=== PATIENT | male | born 1955 | race Caucasian/White ===

== ENCOUNTER 2025-04-04 05:51 | Emergency (ER) | payer MEDICARE, SELFPAY ==
--- OUTSIDE RECORDS SUMMARY | 2025-04-04 05:54 | XMS_ITS | Data Portability ---
Author Organization [facility], [facility] Address [address] [place] [address] Assessment Encounter Date Assessment Date Assessment LastModified by Organization Details LastModified Time 05/05/2023 05/05/2023 67 year old male with phimosis and penile discharge Not available 05/04/2023 22:55:54 06/21/2023 06/21/2023 67 year old male with phimosis and penile discharge rstromquist Not available 06/18/2023 16:39:37 Plan of Treatment Reminders Order Date Submit Date Provider Last Modified By Organization Details Last Modified Time Details Appointments None recorded. Lab None recorded. Referral None recorded. Procedures None recorded. Surgeries circumcisio n (SURG) 2022 023 Not available 14:29:27 Imaging None recorded. Medication Orders None recorded. Patient TargetsNo targets recorded. Patient InstructionsNo instructions recorded. Reason for Referral None Reported. Procedures Surgical History Date Name Laterality Status Provider Name and Address Organization Details Recorded Time 05/21/19 24 CIRCUMCISION (SURG) completed Mir King MD [address] [place] [address],[address] [place] [address], [phone], [facility] 06/21/2023 16:44:42 05/17/19 17 Colonoscopy completed Mir King MD [address] [place] [address],[address], [place], [address], [facility] 05/05/2023 14:38:20 Imaging Results None recorded. Procedure Notes None recorded. Medical Equipment None Reported. Allergies No known drug allergies Medications Name Sig Start Date Stop Date Status Note LastModified by Organization Details LastModified Time valacyclovi r 1 gram tablet TAKE 1 TABLET BY MOUTH THREE TIMES DAILY FOR 10 DAYS 06/21 completed Not Available Not Available Not Available naproxen 250 mg tablet active Not Available Not Available Not Available prednisone 10 mg tablets in a dose pack FOLLOW PACKAGE DIRECTION S 05/05 completed Not Available Not Available Not Available triamcinolo ne acetonide 0.1 % topical ointment APPLY TOPICALLY TO THE AFFECTED AREA TWICE DAILY 05/05 completed Not Available Not Available Not Available clotrimazol e-betametha sone 1 %-0.05 % topical cream APPLY TOPICALLY TO THE AFFECTED AREA TWICE DAILY FOR 14 DAYS 05/05 completed Not Available Not Available Not Available gabapentin 100 mg capsule TAKE 1 CAPSULE BY MOUTH EVERY DAY AT BEDTIME 05/05 completed Not Available Not Available Not Available Vitals Date Recorded Body height Body mass index (BMI) Body weight Provider Name and Address Organization Details Last Updated DateTime 06/21/2023 177.8 cm 28.7 kg/m2 56819.47 g Shelly Mccurdy [facility] 06/21/2023 15:39:32 Date Recorded Body height Body mass index (BMI) Body weight Provider Name and Address Organization Details Last Updated DateTime 05/05/2023 177.8 cm 28.7 kg/m2 19423.47 g Mir King MD [address] [place] [address],[place] [phone] [place] [address] Urology 05/05/2023 14:36:52 Social History Question Answer Notes LastModified by [employer] Details LastModified Time Tobacco Smoking Status Former Smoker Mir King MD [address] [place] [address],[place] [phone] [place] [address] Urology 05/05/2023 14:37:58 When Did You Quit Smoking? 16+yearssinc elastcigaret te Information not available 05/05/2023 What Was The Date Of Your Most Recent Tobacco Screening? 06/21/2023 [email or web address] Information not available 06/21/2023 Has Tobacco Cessation Counseling Been Provided? No Information not available 05/05/2023 Sex: Unknown Functional Status Question Answer Note LastModified by Organizat ion Details LastModified Time Do you or have you ever used any other forms of tobacco or nicotine? No Information not available 05/05/2023 What is your level of alcohol consumption? Occasional Information not available 05/05/2023 Mental Status None recorded. Family History Relationship Description Onset Age of this Age Resolved Age Notes LastModified by Organization Details LastModified Time Father No current problems or disability [email or web address] Not available 06/21 15:39:56 Mother No current problems or disability [email or web address] Not available 06/21 15:39:56 Medical History Condition Response Diabetes N Sexually Transmitted Infection N Other N Bleeding Disorder N High Blood Pressure N Kidney Stones N Cancer N Lung Disease N Depression N High Cholesterol N GERD/Acid Reflux N Heart Disease N Immunizations Vaccine Type Date Status Note Provider Joseph black and Address Organization Details Recorded Time Tdap 01/02/2009 completed Mir King MD [address] [place] [address], [phone], [facility] [place] [facility] 05/05/2023 14:37:02 Past Encounters Encounter ID Performer Location Encounter Start Date Encounter Closed Date Diagnosis/Indication Diagnosis SNOMED-CT Code Diagnosis ICD10 Code Diagnosis IMO Codes Diagnosis Note [id number] MD SERGIO Ansari_Bernadette [address] [place] [address] 05/05/2023 14:14:16 05/18/2023 11:27:05 Phimosis 056224658 N47.1 - We discussed the natural history of phimosis and various treatment options including topical steroid cream (though high risk of recurrence ), Novoglan, and the more definitive dorsal slit/circu mcision. We discussed the risks and benefits of each potential course of action. The patent's questions were answered to the best of my ability and to his satisfacti on. AT this point he would like to proceed with circumcisi on Discharge from penis 291 0007 R36.9 - As above Pain in penis 509989156 N48.89 - As above [id number] MD SERGIO Ansari_Bernadette [address] [place] [id number] 06/21/2023 15:32:31 06/21/2023 16:46:46 Phimosis 579718516 N47.1 - Status post circumcisi on healing well.-Okay to follow-up as needed Discharge from penis 291 0007 R36.9 - As above Pain in penis 273875748 N48.89 - As above Health Concerns Section Related Observation LastModified by Organization Detai ls LastModified Time None Recorded Concern Status LastModified by Organization Details LastModified Time None Recorded Advance Directives Directive None Recorded Payers Insurance Date Sequence Insurance Name Policy Number Policy Leal Covered Member ID Leal Member ID Guarantor Name 06/07/2023 1 [place] Adly Alistair Cifuentes [id number] Alistair Cifuentes 06/18/2023 1 UCARE - DOS ON OR AFTER 19 (MEDICARE REPLACEMENT/A DVANTAGE - HMO) [id number] 10 Alistair Cifuentes [id number] Alistair Cifuentes 06/14/2023 1 UCARE - DOS PRIOR TO 2022 - DUAL ELIGIBLE (MEDICARE REPLACEMENT/A DVANTAGE - HMO) [id number] 10 Alistair Cifuentes [id number] Alistair Cifuentes 05/29/2023 1 [place] Adly Alistair Cifuentes [id number] Alistair Cifuentes Notes Date Note Type Note Provider Name and Address Organization Details Recorded Time 05/05/2023 text/html Mr. Cifuentes is a very pleasant 67 yoM who is referred to me by his PCP, Dr. Vora, regarding chronic phimosis and penile discharge. Patient has been dealing with this for nearly 6-7 years now but worsening. Reports significant pain with urination. Mir King MD [address] [place] [address],[address], [place], [address], [facility] [place] [facility] 05/05/2023 22:09:27 06/21/2023 text/html Mr. Cifuentes is a very pleasant 67 yoM who is referred to me by his PCP, Dr. Vora, regarding chronic phimosis and penile discharge. Patient has been dealing with this for nearly 6-7 years now but worsening. Reports significant pain with urination. 06/21/2023:Here for postop follow-up status post circumcision. Healing well. Mir King MD [address], [place], [address], [facility] 06/21/2023 16:45:28
--- OUTSIDE RECORDS SUMMARY | 2025-04-04 05:54 | XMS_ITS | Clinical Summary ---
Author Organization [facility] Address [address] [place] [address] Care Team Providers Care Web Assistant Name Role Phone Matt Pompa MD Primary Care Provider [phone] Allergies No known active allergies Medications aspirin 81 mg enteric coated tabletIndications:Exert ional chest pain Take 1 Tablet (81 mg) by mouth once daily with a meal. 100 Tablet 10/05/19 25 Active rosuvastatin 20 mg tabletIndications:Pure hypercholesterolemia Take 1 Tablet (20 mg) by mouth at bedtime. 90 Tablet 3 10/06/19 25 Active nitroglycerin 0.4 mg sublingual tabletIndications:Exert ional chest pain Place 1 Tablet (0.4 mg) under the tongue every 5 minutes if needed for Chest Pain. Up to 3 tablets in 15 minutes. If patient requesting greater than 25 doses in 30 days, to provider to authorize 25 Tablet 4 12/12/19 25 Active Active Problems Problem Noted Date Diagnosed Date Other atopic dermatitis and related conditions 0 07/11/2007 Unspecified essential hypertension 07/11/2007 Pure hypercholesterolemia 07/11/2007 Immunizations Immunization Administration Dates Next Due Td (Age >=7 Years) 11/19/1995 Tdap 01/02/2009 Family History Medical History Relation Name Comments other Brother 1 Nic he was in a bad car accident when he was young; from another car accident at 74. Other Brother 2 in a work accident Unknown Father Natural causes 89 Heart failure Half-Brother open heart tracee bonnie of heart giving out at 82, Diabetes Mother age 66 Stroke Mother of a strok e after hip fracture at 84 Relation Name Status Comments Brother 1 Nic Brother 2 Father Half-Brother Alive Half-Sister Alive Mother Sister Alive Social History Tobacco Use Types Packs/Day Years Used Date Smoking Tobacco: Former Cigarettes 0.8 25 0 07/12/1973 - 07/12/1998 Smokeless Tobacco: Never Tobacco Cessation:Counseling Given: Yes Alcohol Use Standard Drinks/Week Comments Not Currently 0 (1 standard drink = 0.6 oz pur e alcohol) quit in 2022 PHQ-2 Answer Date Recorded PHQ-2 TOTAL SCORE 0 09/27/2024 Social Connections Answer Date Recorded Do you often feel lonely or isolated from those around you? 0 09/27/2024 Financial Resource Strain Answer Date R ecorded Difficulty of Paying Living Expenses 3 09/27/2024 Difficulty of Paying Living Expenses Not on file 09/27/2024 Food Insecurity Answer Date Recorded Do you worry your food will run out before you are able to buy more? 1 09/27/2024 Transportation Needs Answer Date Record ed Does lack of transportation keep you from medica l appointments? 1 09/27/2024 Does lack of transportation keep you from work, meetings or getting things that you need? 1 09/27/2024 Housing Stability Answer Date Recorded What is your housing situation today? 1 09/27/2024 Utilities Answer Date Recorded Do you have trouble paying f or utilities (for example, heat, electricity, water, phone)? 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 Not on file Not on file Not on file Retired Not on file Not on file Not on file Obstetrics History Last Filed Vital Signs Vital Sign Reading Time Taken Comments Blood Pressure 136/89 10/04/2024 9:30 AM CDT Pulse 75 10/04/2024 9:30 AM CDT Temperature 36.3 C (97.3 F) 05/21/2023 8:48 AM PRESSURE VESSEL INSPECTOR Respiratory Rate 16 05/21/2023 8:48 AM PRESSURE VESSEL INSPECTOR Oxygen Saturation 97% 10/04/2024 9:30 AM CDT Inhaled Oxygen Concentration - - Weight 91.9 kg (202 lb 8 oz) 09/27/2024 9:01 AM CDT Height 177.8 cm (5' 10) 09/27/2024 9:01 AM CDT Body Mass Index 29.06 09/27/2024 9:01 AM CDT Plan of Treatment Health Maintenance Due Date Last Done Comments Hepatitis C screening for age 18-79 07/14/1973 Pneumococcal series for age 50+ (1 of 1 - PCV) 07/14/2005 Zoster (shingles) series for age 50+ (1 of 2) 07/14/2005 Tetanus booster 01/02/2019 01/02/2009, 11/19/1995 AAA screening age 65-74 07/14/2020 Influenza Vaccine (#1) 2025 BMI (ht and wt on same day) for age 18+ 09/27/2025 09/27/2024, 08/13/2023, 12/27/2017 Depression screening for age 12+ 09/27/2025 09/27/2024, 08/13/2023, 12/27/2017 Medicare Wellness for age 65+ 09/28/2025 09/27/2024, 08/13/2023 Fecal testing sDNA-FIT (Cologuard) for age 45-75 08/24/2026 08/25/2023 Lipids for age 45-75 09/27/2029 09/27/2024, 07/14/2013, 01/18/2013, Additional history exists RSV vaccine for adults or (1 - 1-dose 75+ series) 07/14/2030 Hepatitis B series for 19+ Aged Out N o longer eligible based on patient's age to complete this topic Procedures Procedure Name Priority Date/Time Associated Diagnosis Comments LIPID PANEL W REFLEX MEASURED LDL Routine 09/27/2024 9:58 AM CDT Screening for cardiovascular condition SDNA-FIT EXTERNAL (COLOGUARD) Routine 08/25/2023 8:30 AM CDT Screening for colon cancer from Last 3 Months or Most Recently Relevant to Health Maintenance Results * (ABNORMAL) LIPID PANEL W REFLEX MEASURED LDL [[id number]] (09/27/2024 9:58 AM CDT) CHOLESTEROL, TOTAL 269(H) <200 mg/dL [facility] HDL CHOLESTEROL 48 > OR = 40 mg/dL [facility] TRIGLYCERIDES 149 <150 mg/dL [facility] LDL-CHOLESTEROL 190(H) mg/dL (calc) [facility] [place] Comment: LDL-C levels > or = 190 mg/dL may indicate familial hypercholesterolemia (FH). Clinical assessment and measurement of blood lipid levels should be considered for all first degree relatives of patients with an FH diagnosis. LDL Cholesterol (LDL-C) levels > or = 300 mg/dL may indicate homozygous familial hypercholesterolemia (HoFH). Untreated, these extremely high LDL-C levels can result in premature CV events and mortality. Patients should be identified early and provided appropriate interventions to reduce the cumulative LDL-C burden from . For questions about testing for familial hypercholesterolemia, please call [facility] at [email or web address].ViajaNet.INFO. Petra De Luna, et al. J National Lipid Association Recommendations for Patient-Centered Management of Dyslipidemia: Part 1 Journal of Clinical Lipidology 2015;9(2), 129-169. Karon Lainez et al. (2014). Homozygous familial hypercholesterolaemia: new insights and guidance for clinicians to improve detection and clinical management. Heart Journal, 35(32), 4518-4677. Reference range: <100 Desirable range <100 mg/dL for primary prevention; <70 mg/dL for patients with CHD or diabetic patients with > or = 2 CHD risk factors. LDL-C is now calculated using the Edgard-Dmitriy calculation, which is a validated novel method providing better accuracy than the Friedewald equation in the estimation of LDL-C. Edgard BRUCE et al. ARIS. 2013;310(19): 4922-3574 (http://education.Ctrax/faq/DNI299) CHOL/HDLC RATIO 5.6(H) <5.0 (calc) [facility] NON HDL CHOLESTEROL 221(H) <130 mg/dL (calc) [facility] Comment: Non-HDL level > or = 220 is very high and may indicate genetic familial hypercholesterolemia (FH). Clinical assessment and measurement of blood lipid levels should be considered for all first-degree relatives of patients with an FH diagnosis. For patients with diabetes plus 1 major ASCVD risk factor, treating to a non-HDL-C goal of <100 mg/dL (LDL-C of <70 mg/dL) is considered a therapeutic option. Blood BLOOD SPECIMEN / Unknown 09/27/2024 9:58 AM CDT 09/27/2024 10:00 AM CDT Narrative [facility] - 09/28/2024 4:03 AM CDT FASTING:YES FASTING: YES us Matt Pompa MD CHEMISTRY Final Resu lt [facility] [address] [place] [address], [facility] [address] [place] [address] * SDNA-FIT EXTERNAL (COLOGUARD) (08/25/2023 8:30 AM CDT) NONINV COLON CA DNA+OCC BLD SCRN STL-IMP Negative Negative 09/01/2023 1:05 PM CDT [facility]kola (CLIA #:[id number]) Comment: NEGATIVE TEST RESULT. A negative Cologuard result indicates a low likelihood that a colorectal cancer (CRC) or advanced adenoma (adenomatous polyps with more advanced pre-malignant features) is present. The chance that a person with a negative Cologuard test has a colorectal cancer is less than 1 in 1500 (negative predictive value >99.9%) or has an advanced adenoma is less than 5.3% (negative predictive value 94.7%). These data are based on a prospective cross-sectional study of 10,000 individuals at average risk for colorectal cancer who were screened with both Cologuard and colonoscopy. (Amber Pringle al, N Engl J Med 2014;370(14):2113-4508) The normal value (reference range) for this assay is negative. COLOGUARD RE-SCREENING RECOMMENDATION: Periodic colorectal cancer screening is an important part of preventive healthcare for asymptomatic individuals at average risk for colorectal cancer. Following a negative Cologuard result, the [place] Cancer Society and U.S. Multi-Society Task Force screening guidelines recommend a Cologuard re-screening interval of 3 years. References: [place] [employer] Society Guideline for Colorectal Cancer Screening: https://www.cancer.org/cancer/tohqi-ofjjhr-ubjzih/jqowqlopz-mqbqkmrfn-kbcnzmc/ac s-rec ommendations.html.; Warren DK, Johnnie RODRIGUEZ, Sumit EdwardsK, Colorectal Cancer Screening: Recommendations for Physicians and Patients from the U.S. Multi-Society Task Force on Colorectal Cancer Screening , Am J Gastroenterology 2017; 112:1809-5676. TEST DESCRIPTION: Composite algorithmic analysis of stool DNA-biomarkers with hemoglobin immunoassay. Quantitative values of individual biomarkers are not reportable and are not associated with individual biomarker result reference ranges. Cologuard is intended for colorectal cancer screening of adults of either sex, 45 years or older, who are at average-risk for colorectal cancer (CRC). Cologuard has been approved for use by the U.S. FDA. The performance of Cologuard was established in a cross sectional study of average-risk adults aged 50-84. Cologuard performance in patients ages 45 to 49 years was estimated by sub-group analysis of near-age groups. Colonoscopies performed for a positive result may find as the most clinically significant lesion: colorectal cancer [4.0%], advanced adenoma (including sessile serrated polyps greater than or equal to 1cm diameter) [20%] or non- advanced adenoma [31%]; or no colorectal neoplasia [45%]. These estimates are derived from a prospective cross-sectional screening study of 10,000 individuals at average risk for colorectal cancer who were screened with both Cologuard and colonoscopy. (Amber Simpson et al, N Engl J Med 2014;370(14):7110-5054.) Cologuard may produce a false negative or false positive result (no colorectal cancer or precancerous polyp present at colonoscopy follow up). A negative Cologuard test result does not guarantee the absence of CRC or advanced adenoma (pre-cancer). The current Cologuard screening interval is every 3 years. ([place] Cancer Society and U.S. Multi-Society Task Force). Cologuard performance data in a 10,000 patient pivotal study using colonoscopy as the reference method can be accessed at the following location: www.[employer].Counselytics/results. Additional description of the Cologuard test process, warnings and precautions can be found at www.SkinMedicard.com. Stool specimen (specimen) (Rectum) 08/25/2023 8:30 AM CDT 08/26/2023 1:00 PM CDT Matt Pompa MD URINE Final Resu lt [facility] (CLIA #:[id number]) [address] [place] [address], [place] [phone] from Last 3 Months or Most Recently Relevant to Health Maintenance Insurance [facility] MEDICARE ADVANTAGE [place] MEDICARE PART A HB ONLY Advance Directives * Full Code (Latest Code Status on File) Date Activated Date Inactivated Comments 05/21/2023 5:51 AM 05/21/2023 2:42 PM Question Answer Comments Code Status Discussion: Unable to Assess Preferences, Provider to review later Care Teams Web Assistant Relationship Specialty Start Date End Date Matt Pompa MD [address] [place] [address] PCP - General 11/19/05
[2025-04-04 05:58] VITALS: BP 155/106; PULSE 100; RESP 18; TEMP 36.1; O2SAT 98; BMI 27.3
--- NOTE | 2025-04-04 06:29 | ED.BACK ---
HPI - Back Pain/Injury General Time Seen by Provider: 06:30 Date Seen: 04/04/25 Chief Complaint: Back Injury/Pain Stated Complaint: back pain Time Seen by Provider: 04/04/25 06:29 Source: patient Mode of arrival: ambulatory History of Present Illness HPI Narrative: Alistair is a 69 yo male who has no significant past medical history who presents the emergency department for evaluation of low back pain. Patient reports that approximately 7 weeks ago he was moving rocks and since that time has been having some back pain. Patient states that he went to urgent care approximately 2 weeks ago and at that time patient was treated with a 5 day course of prednisone. Patient reports he completed the course of steroids with no improvement of symptoms and return to Urgent Care approximately 1 week ago. During this visit patient was given a referral to physical therapy and was recommended to continue Tylenol, ibuprofen, lidocaine patches and performed back exercises 1-2 times daily until he is able to get into physical therapy. Patient reports that no improvement of symptoms despite doing exercises, medications as directed. Patient reports worsening symptoms last night. Patient states he has been doing his back exercises and last night was going up the stairs when suddenly he felt a pop in his low back followed by severe pain. Patient reports pain across his entire low back. Denies any radiation of the pain down his legs, no focal weakness, no tingling, numbness, no urinary or bowel incontinence or retention. Patient last took ibuprofen around 5:00 p.m.. Patient frustrated with worsening symptoms as well as ongoing symptoms for the past 7 weeks with no answers, no imaging, and still with ongoing pain. Per chart review patient was seen at urgent care on 03/18/2025 at that time he was treated with prednisone 20 mg twice daily for 5 days. Patient was seen again on 03/27/2025 at that time when physical therapy referral was placed and recommended supportive care with back exercises, Tylenol, ibuprofen, lidocaine patch. Related Data Home Medications ?Medication ?Instructions ?Recorded ?Confirmed No Known Home Medications 03/27/25 03/27/25 Allergies Allergy/AdvReac Type Severity Reaction Status Date / Time No Known Drug Allergies Allergy Verified 04/04/25 06:03 Review of Systems Narrative: Past medical history, past surgical history, medications, allergies, family history, and social history were reviewed with the patient. No additional pertinent items. A medically appropriate review of systems was performed with pertinent positives and negatives noted in HPI, all other systems negative. [facility] Social History Smoking Status: Former smoker Exam Narrative: Exam Narrative: General: Afebrile, in distress secondary to pain HEENT: Normocephalic, atraumatic, conjunctiva normal. MMM Neck: non-tender, supple Cardio: regular rate. regular rhythm Resp: Normal work of breathing, no respiratory distress, lungs clear bilaterally, no wheezing, rhonchi, rales Chest/Back: no visual signs of trauma, no midline tenderness, no CVA tenderness, no step offs, no deformities, +patient reports tenderness across his entire low back (L4-L5) Abdomen: soft, non distension, no tenderness, no peritoneal signs Neuro: alert and fully oriented. CN II-XII intact. Normal strength and sensation in all extremities. MSK: no deformities. Normal range of motion Integumentary/Skin: no rash visualized, normal color Psych: normal affect, normal behavior Const: Vital Signs, click to edit/add: Vital Signs - 24 hr 04/04/25 05:58 Temperature 97.0 F L Pulse Rate [Right Pulse Oximeter] 100 Respiratory Rate 18 Blood Pressure [Ri ght Upper Arm] 155/106 H Pulse Oximetry 98 Oxygen Delivery Me thod Room Air Course Vital Signs Vital signs: Initial Vital Signs Temperature 97.0 F L 04/04/25 05:58 Temperature Source Temporal Artery Scan 04/04/25 05:58 Pulse Rate 100 04/04/25 05:58 Pulse Rhythm Regular 04/04/25 05:58 Pulse Strength 3+ Normal 04/04/25 05:58 Respiratory Rate 18 04/04/25 05:58 Blood Pressure 155/106 H 04/04/25 05:58 Blood Pressure Mean 122 H 04/04/25 05:58 Blood Pressure Position Sitting 04/04/25 05:58 Pulse Oximetry 98 04/04/25 05:58 Oxygen Delivery Method Room Air 04/04/25 05:58 Vital Signs Temperature 97.0 F L 04/04/25 05:58 Pulse Rate 100 04/04/25 05:58 Respiratory Rate 18 04/04/25 05:58 Blood Pressure 155/106 H 04/04/25 05:58 Pulse Oximetry 98 04/04/25 05:58 Oxygen Delivery Method Room Air 04/04/25 05:58 Temperature 97.0 F L 04/04/25 05:58 Pulse Rate 100 04/04/25 05:58 Respiratory Rate 18 04/04/25 05:58 Blood Pressure 155/106 H 04/04/25 05:58 Pulse Oximetry 98 04/04/25 05:58 Oxygen Delivery Method Room Air 04/04/25 05:58 MDM - Back Pain/Injury MDM Narrative Medical decision making narrative: Alistair is a 69 yo male who has no significant past medical history who presents the emergency department for evaluation of low back pain. Upon arrival patient is nontoxic appearing, afebrile, in distress secondary to pain. Patient hypertensive upon arrival with blood pressure 155/106, heart rate 100, oxygen 98% on room air. Patient here with worsening low back pain after initial injury 7 weeks ago. Patient with no focal neurological deficits, no red flags, no urinary or bowel incontinence/retention. Differential diagnosis includes but is not limited to lumbar sacral strain, lumbar radiculopathy, sciatica, herniated disc, less likely cauda equina (no red flags). Plan for further evaluation with CT imaging. Patient treated with IV toradl, morphine for pain. Patient signed out to morning provider Dr. Cooper Medical Records Attestation: I reviewed the patient's medical records. Discharge Plan Discharge Clinical Impression: Low back pain Prescriptions: No Action No Known Home Medications Follow Up/Referrals: Bel Betancur PA-C [Primary Care Provider, [facility]]
--- NOTE | 2025-04-04 06:57 | CRLHL7_ITS ---
For Patients: As a result of the Century Cures Act, medical imaging exams and procedure reports are released immediately into your electronic medical record. You may view this report before your referring provider. If you have questions, please contact your health care provider. Indication: Low back pain. Technique: Noncontrast CT images of the lumbar spine. Comparison: None. Findings: Diffuse osseous demineralization. Moderate L4 and L5 compression fractures demonstrating slight retropulsion are age-indeterminate. Moderately severe T12, mild L1, and moderate L3 compression fractures are chronic appearing, though age indeterminate. The lumbar lordosis is preserved. Mild leftward lumbar curvature. Multilevel posterior disc bulging, retropulsion, and facet arthropathy contributing up to moderately severe spinal canal stenosis at L2-3. There is gigp-rf-tmybpfco neural foraminal narrowing at L4-5. 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 Sacroiliac joint degenerative changes. Impression: 1. Moderate L4 and L5 compression fractures demonstrating slight retropulsion are age-indeterminate. 2. Moderately severe T12, mild L1, and moderate L3 compression fractures are chronic appearing, though age indeterminate. 3. Multilevel lumbar spondylosis, including moderately severe spinal canal stenosis at L2-3. 4. Chronic bilateral 5 pars defects without associated spondylolisthesis. Please note that all CT scans at this facility use dose modulation, iterative reconstruction, and/or weight-based dosing when appropriate to reduce radiation dose to as low as reasonably achievable. Dictated by Bobby Tony MD @ 04/04/2025 11:21:51 AM (Electronically Signed)
--- NOTE | 2025-04-04 07:26 | CRLHL7_ITS ---
For Patients: As a result of the Century Cures Act, medical imaging exams and procedure reports are released immediately into your electronic medical record. You may view this report before your referring provider. If you have questions, please contact your health care provider. Indication: Compression fractures. Technique: Multiplanar multisequence noncontrast MR images of the lumbar spine. Comparison: CT lumbar spine 04/04/2025. Findings: Moderate recent or subacute L4 and L5 compression fractures associated with vertebral body marrow edema as well as edema extending into the bilateral L5 posterior elements. Mild associated retropulsion. Mild subacute L1 inferior endplate compression fracture. Moderately severe T12 and moderate L3 chronic compression fractures demonstrating mild retropulsion. Diffusely increased background T1 marrow signal intensity, compatible with osseous demineralization. The lumbar lordosis is preserved. Slight biconvex lumbar curvature. Normal conus terminates at L1. T11-12: Mild disc degeneration. Retropulsion. Minimal spinal canal narrowing. No neural foraminal narrowing. T12-L1: Mild disc degeneration. Shallow disc bulge. Minimal spinal canal narrowing. No neural foraminal narrowing. L1-2: Pibt-nx-wzxdueau disc degeneration. Shallow disc bulge. Mild spinal canal narrowing. No neural foraminal narrowing. L2-3: Moderate disc degeneration. Posterior disc bulge. Retropulsion. Petd-xs-jkstqain facet arthropathy. Ligamentum flavum thickening. Moderate spinal canal and left lateral recess narrowing. No neural foraminal narrowing. L3-4: Moderate disc degeneration. Shallow disc bulge. Mild facet arthropathy. Minimal spinal canal narrowing. No neural foraminal narrowing. L4-5: Moderate disc degeneration. Retropulsion. Posterior disc bulge. Wbht-nm-oahgcppe facet arthropathy. Mild spinal canal and lateral recess narrowing. Quga-zm-nmebvptm left and minimal right neural foraminal narrowing. L5-S1: Chronic bilateral L5 pars defects. Moderate disc degeneration. Shallow disc bulge. Jhab-qz-exybpqzm facet arthropathy. No spinal canal narrowing. Mild bilateral neural foraminal narrowing. Very small dorsal right ligamentum flavum or synovial cyst. Sacroiliac joint degenerative changes. Impression: 1. Moderate recent or subacute L4 and L5 compression fractures associated with vertebral body marrow edema as well as edema extending into the bilateral L5 posterior elements. Mild associated retropulsion. 2. Mild subacute L1 inferior endplate compression fracture. 3. Moderately severe T12 and moderate L3 chronic compression fractures demonstrating mild retropulsion. 4. At L2-3, moderate spinal canal and left lateral recess narrowing. 5. At L5-S1, chronic bilateral L5 pars defects without spondylolisthesis. Dictated by Bobby Tony MD @ 04/04/2025 12:42:15 PM (Electronically Signed)
[2025-04-04 07:45] LABS: Hematocrit* 43.5 % (37.0-53.0); Hemoglobin* 14.5 gm/dL (13.5-17.5); Immature Granulocytes Abs Auto 0.03 K/uL (0.00-0.30); Immature Granulocytes Pct Auto 0.5 %; Lymphocytes Absolute Auto 1.62 K/uL (0.90-2.90); Mean Corpuscular HGB Conc 33 gm/dL (32-36); Mean Corpuscular Hemoglobin 31 pg (26-34); Mean Corpuscular Volume 94 fL (80-100); RDW Coefficient of Variation % 12.5 % (11.5-15.5); Red Blood Count* 4.64 m/uL (4.30-5.90); White Blood Count* 6.43 K/uL (4.50-11.00)
[2025-04-04 07:50] LABS: Slide Review Reflex No
[2025-04-04 07:58] LABS: Chloride* 105 mmol/L (96-114); Potassium* 4.2 mmol/L (3.6-5.1); Sodium* 138 mmol/L (135-149)
[2025-04-04 08:01] LABS: Anion Gap 9 mEq/L (7-15); Blood Urea Nitrogen* 15 mg/dL (7-30); Calcium* 8.7 mg/dL (8.4-10.6); Carbon Dioxide* 24 mmol/L (20-32); Creatinine* 0.8 mg/dL (0.5-1.5); Est. Creatinine Clearance* 71.99; Estimated Glomerular Filt Rate 96 ml/min; Glucose* 111 mg/dL (60-115)
[2025-04-04 08:58] VITALS: BP 121/100; PULSE 68; RESP 16; O2SAT 97
[2025-04-04] MEDS: MORPHINE 4 MG/ML INJ IVP (12:45)
[2025-04-04 13:02] VITALS: BP 138/93; PULSE 89; RESP 16; O2SAT 98
== END 2025-04-04 13:28 | disposition home or self-care (01) ==
LOC: ED 07:28
PROVIDERS: Family Medicine; Emergency Provider Emergency Medicine; PCP Family Medicine
DX: M48.56XA Collapsed vertebra, not elsewhere classified, lumbar region, initial encounter for fracture (principal); M48.061 Spinal stenosis, lumbar region without neurogenic claudication; X50.0XXA Overexertion from strenuous movement or load, initial encounter; Y93.89 Activity, other specified
CPT/HCPCS: 36415; 72131; 72148; 80048; 85025; 86140; 96374; 96375; 99284; 99285; J1885; J2270